=== PATIENT | male | born 1985 | race African-American/Black ===

== ENCOUNTER 2017-04-22 01:24 | Emergency (ER) | payer MEDICAID ==
[~2017-04-22] VITALS: Ht 182.9 cm; Wt 104.3 kg
[2017-04-22 01:30] VITALS: BP 117/88
[2017-04-22] MEDS ORDERED: SPIRONOLACTONE1 EACH ORAL (01:30)
--- NOTE | 2017-04-22 01:48 | Emergency Room Report ---
History of Present Illness General Chief Complaint: Medical Clearance Source: Patient Present Illness HPI Patient was brought in by police for medical clearance Patient had reported laceration to the left knee 2 days ago Upon eval in the patient's, the patient's name is noted in the medical record says Noel, therefore I did address the patient is Noel, after which the patient became irate verbally abusive, continued to curse at me and the staff, regarding that her name was Yoana. Soon after this the patient refused any further care Reported that she would spit in her face if the police were not here Patient History Past Medical History: see triage record Pertinent Family History: unable to obtain Reviewed Nursing Documentation: PMH: Agreed, PSxH: Agreed Nursing Documentation-PMH Past Medical History: No Stated History Review of Systems All Other Systems: limited - Other than the ones mentioned in the history of present illness all others are reviewed however they do stay limited due to the patient's mental status Physical Exam Vital Signs Date Time Temp Pulse Resp B/P Pulse Ox O2 Delivery O2 Flow Rate FiO2 04/22/17 01:26 98.8 112 20 117/88 98 Room Air Sp02 EP Interpretation: reviewed, normal General Appearance: no apparent distress Head: normocephalic, atraumatic Musculoskeletal: other - bandage over left knee Neurologic: alert Medical Decision Making Diagnostic Impression: Primary Impression: refusal of care ER Course Patient refused any further evaluation or examination Hemodynamically stable Continues to curse at the staff and myself Released to the police department for further care Last Vital Signs Date Time Temp Pulse Resp B/P Pulse Ox O2 Delivery O2 Flow Rate FiO2 04/22/17 01:26 98.8 112 20 117/88 98 Room Air Status: unchanged Disposition: D/C TO LAW ENFORCEMENT IN CUST Condition: Stable Patient Instructions: Nonsutured Laceration Care Additional Instructions: you have refused medical evaluation at this time AKASH CARLSON D.O. Apr 22, 2017 01:48
[2017-04-22 01:50] VITALS: BP 117/88
[2017-04-23] MEDS ORDERED: CEPHALEXIN500 MG ORAL (14:51)
== END 2017-04-22 01:50 ==
LOC: EMR 01:45
DX: S81.012A Laceration without foreign body, left knee, initial encounter (principal); X58.XXXA Exposure to other specified factors, initial encounter; Y93.9 Activity, unspecified; Y92.9 Unspecified place or not applicable
CPT/HCPCS: 99283

== ENCOUNTER 2017-04-23 13:13 | Emergency (ER) | payer MEDICAID ==
[~2017-04-23] VITALS: Ht 185.4 cm; Wt 90.7 kg
[~2017-04-23 13:13] MED LIST: SPIRONOLACTONE1 EACH ORAL
[2017-04-23 13:27] VITALS: BP 148/94
[2017-04-23] MEDS ORDERED: Lidocaine 2% 20mg/ml/Epi 0.005mg/ml 20ml vial ONE (13:44)
[2017-04-23] MEDS ORDERED: Lidocaine 1% 10mg/ml/Epi 0.005mg/ml 30ml vial INJ ONE (13:45)
--- NOTE | 2017-04-23 14:46 | Emergency Room Report ---
History of Present Illness General Chief Complaint: Wound Recheck/Suture Removal Source: Patient Present Illness HPI 31 YO Male that is dressed and requests to be addressed as a female presents to the ED c/o laceration to the left knee x 2 days s/p fall on top of broken plaster bowl 2 days ago. pt. was seen here in the ED but initially refused care. pt. presents in law enforcement custody. denies bony pain, fever, chills or erythema. pt. reports continued pain that she describes as superficial and localized to the skin on the left knee. denies pain with ambulation. denies taking blood thinning medications and states that tetanus is UTD. Denies numbness tingling or loss of sensation or gross motor movements of the extremities, incontinence of bowel or bladder. Denies CP, Palpitations, LOC, AMS , dizziness, Changes in Vision, Sensation, paresthesias, or a sudden severe headache. Allergies: Coded Allergies: No Known Allergies (Unverified , 04/23/17) Patient History Past Medical History: see triage record Past Surgical History: none Pertinent Family History: none Reviewed Nursing Documentation: PMH: Agreed, PSxH: Agreed Nursing Documentation-PMH Past Medical History: No Stated History Review of Systems All Other Systems: negative except mentioned in HPI Physical Exam Vital Signs Date Time Temp Pulse Resp B/P Pulse Ox O2 Delivery O2 Flow Rate FiO2 04/23/17 13:16 98.1 93 18 148/94 99 Room Air Sp02 EP Interpretation: reviewed, normal General Appearance: no apparent distress, alert, GCS 15, non-toxic Head: normocephalic, atraumatic Eyes: bilateral eye PERRL, bilateral eye normal inspection ENT: hearing grossly normal, normal pharynx, no angioedema, normal voice Neck: full range of motion, supple/symm/no masses Respiratory: lungs clear, normal breath sounds, speaking full sentences Cardiovascular #1: regular rate, rhythm, no edema Rectal: deferred Musculoskeletal: back normal, gait/station normal, normal range of motion, non- tender Neurologic: alert, oriented x3, responsive, motor strength/tone normal, sensory intact, speech normal Psychiatric: judgement/insight normal, memory normal, mood/affect normal Skin: normal color, no rash, warm/dry, well hydrated, laceration - 3cm flap laceration to the left anterior knee with obvious debris, there is also two small abrasions just below the flap laceration Procedures Laceration/Wound Repair Laceration/Wound Repair : Consent: Verbal Wound Location: lower extremity - left anterior knee Wound's Depth, Shape: superficial Wound Length (cm): 3 Wound Explored: contaminated - moderate debris Irrigated w/ Saline (ccs): 500 Betadine Prep?: Yes Anesthesia: Lidocaine w/ Epi Volume Anesthetic (ccs): 6 Wound Debrided: minimal Wound Repaired With: Steri-strips Sterile Dressing Applied?: Yes Sling Applied?: No Patient Tolerated: Well Complications: None Medical Decision Making PA Attestation Dr. hahn is my supervising Physician whom patient management has been discussed with. Diagnostic Impression: Primary Impression: Laceration Additional Impression: Foreign body (FB) in soft tissue ER Course 31 YO Male that is dressed and requests to be addressed as a female presents to the ED c/o laceration to the left knee x 2 days s/p fall on top of broken plaster bowl 2 days ago. pt. was seen here in the ED but initially refused care. pt. presents in law enforcement custody. denies bony pain, fever, chills or erythema. pt. reports continued pain that she describes as superficial and localized to the skin on the left knee. denies pain with ambulation. denies taking blood thinning medications and states that tetanus is UTD Ddx considered but are not limited to laceration, tendon injury, cellulitis, amputation Vital signs: are WNL, pt. is afebrile H&PE are most consistent with: Left knee Flap laceration approx 2cm in length , with obvious debris ORDERS: none required at this time, the diagnosis is clinical - d/w pt. that will not suture laceration as delayed closure increases chance of infection. ED INTERVENTIONS: - local anesthesia is achieved with 1% lidocaine with EPI 6cc were injected. - The wound was copiously irrigated with normal saline, and explored : moderate debris noted, and was removed with high pressure irrigation and physical removal with gauze and sterile q-tips. - The wound was approximated and closed using steri-strips. -Bacitracin and sterile dressing is applied. Discussed with patient: That we make every effort to approximate the laceration as best as we can so that scarring will be as cosmetically pleasing as possible with our limited cosmetic skill set in the Emergency dept. Regardless of our best efforts there will be scarring after laceration repair. The extent of scarring is unknown at this time. DISCHARGE: At this time pt. is stable for d/c to home. Will provide printed patient care instructions, and any necessary prescriptions. Care plan and follow up instructions have been discussed with the patient prior to discharge. Last Vital Signs Date Time Temp Pulse Resp B/P Pulse Ox O2 Delivery O2 Flow Rate FiO2 04/23/17 13:27 98.1 89 18 148/94 99 Room Air Disposition: D/C TO LAW ENFORCEMENT IN CUST Condition: Stable Scripts Cephalexin* (KEFLEX*) 500 Mg Capsule 500 MG ORAL EVERY 12 HOURS, #14 CAP 0 Refills Prov: Theresa Gaffney 04/23/17 Referrals: NOT CHOSEN IPA/,REFERRING (PCP) Departure Forms: Long-Term Clearance Patient Instructions: Laceration Care, Adult, [id number], Nonsutured Laceration Care Additional Instructions: Take medications as directed. Follow up with PCP in 3-5 days Return sooner to ED if new symptoms occur, or current symptoms become worse. - Please note that this Emergency Department Report was dictated using [employer] support technology software, occasionally this can lead to erroneous entry secondary to interpretation by the dictation equipment. Theresa Gaffney Apr 23, 2017 14:46
[2017-04-23] MEDS ORDERED: CEPHALEXIN500 MG ORAL (14:51)
[2017-04-23 15:04] VITALS: BP 142/88
[2017-04-23 15:08] VITALS: BP 142/88
== END 2017-04-23 15:14 | disposition home or self-care (01) ==
LOC: EMR 13:29
DX: S81.022A Laceration with foreign body, left knee, initial encounter (principal); W19.XXXA Unspecified fall, initial encounter; Y93.9 Activity, unspecified; Y92.9 Unspecified place or not applicable
CPT/HCPCS: 12032; 99284; Z7502